=== PATIENT | female | born 1965 ===

== ENCOUNTER 2019-04-17 10:38 | Emergency (ER) | payer OTHER ==
[~2019-04-17] VITALS: Ht 170.2 cm; Wt 71.7 kg
== END 2019-04-17 14:48 | disposition home or self-care (01) ==
LOC: ER 10:38
DX: L02.411 Cutaneous abscess of right axilla (principal)

== ENCOUNTER 2021-05-09 13:05 | Outpatient (CLI) | payer OTHER | END 2021-05-09 13:24 | disposition home or self-care (01) | LOC: MRI 13:05 | PROVIDERS: ATTEND Orthopaedic Surgery | DX: M25.561 Pain in right knee (principal); M25.562 Pain in left knee | CPT/HCPCS: 73721 ==